=== PATIENT | male | born 1965 | race Two or more races ===

== ENCOUNTER 2021-11-16 07:57 | Day surgery (SDC) | payer MEDICAID ==
[2021-11-13 11:59] LABS: Basophils # (auto) 0 10 ^3/uL (0-0.2); Monocytes % (auto) 6.1 % (0.0-12.0); White Blood Cell 7.4 10^3/uL (4.4-10.8)
[2021-11-13 12:01] LABS: Basophils % (auto) 0.7 % (0.0-2.0); Eosinophils # (auto) 0.5 10 ^3/uL (0-0.8); Eosinophils % (auto) 6.1 % (0.0-7.0); Hematocrit 41.3 % (41.0-53.0); Hemoglobin 13.2 g/dL (13.5-17.5); Lymphocytes # (auto) 1.6 10 ^3/uL (0.4-5.4); Mean Corpuscular Hemoglobin 26.2 pg (28.0-32.0); Mean Corpuscular Volume 82.1 fL (80.0-100.0); Monocytes # (auto) 0.5 10 ^3/uL (0-1.3); Neutrophils # (auto) 4.8 10 ^3/uL (1.6-8.6); Neutrophils % (auto) 65.1 % (37.0-80.0); Red Blood Cells 5.03 10^6/uL (4.5-5.90); Red Cell Distribution Width 14.6 % (11.8-14.3)
[2021-11-13 12:19] LABS: Potassium 4.3 mmol/L (3.5-5.1)
[2021-11-13 12:21] LABS: Urine Bacteria NONE SEEN /hpf (None Seen); Urine Blood Negative /uL (Negative); Urine Specific Gravity 1.013 (1.001-1.035); Urine WBC <1 /hpf (0 - 3)
[2021-11-13 12:27] LABS: Albumin 3.7 g/dL (3.4-5.0); BUN/Creatinine Ratio 11.7; Bilirubin, Total 0.4 mg/dL (0.2-1.0); Calcium 8.9 mg/dL (8.5-10.1); Total Protein 7.5 g/dL (6.4-8.2)
[2021-11-13 12:29] LABS: INR 0.97 (0.9-1.15); Partial Thromboplastin Time 25.6 sec (24.6-33.4)
[~2021-11-16] VITALS: Ht 190.5 cm; Wt 140.6 kg
[~2021-11-16 07:57] MED LIST: GABA400C PO; HYDR-4072 PO; LISI40TA11 PO; OME20GT PO
[2021-11-16] MEDS ORDERED: PHENYLEPHRINE HCL 10 MG/ML VL IV ONE (07:58)
[2021-11-16] MEDS ORDERED: ceFAZolin 1GM/50ML 100 ML IV ONE (10:06)
[2021-11-16] MEDS ORDERED: SUCCINYLCHOLINE CHLORIDE 20 MG/ML 10ML VIAL IV ONE (10:15)
[2021-11-16] MEDS ORDERED: fentaNYL CITRATE 100 MCG/2 ML VL ONE (10:23)
[2021-11-16] MEDS ORDERED: MIDAZOLAM HCL 2MG/2ML 2ml VIAL (1mg/ml) ONE (10:23)
[2021-11-16] MEDS ORDERED: MEPERIDINE HCL (50 MG/ML) 1 ML VIAL ONE (10:23)
[2021-11-16] MEDS ORDERED: LIDOCAINE 2% JELLY 11ml (GLYDO) ONE (10:30)
[2021-11-16] MEDS ORDERED: HYDROmorphone HCL 2 MG/ML VL/or syr IV PRN (11:00)
[2021-11-16] MEDS ORDERED: ePHEDrine SULFATE 50 MG/ML AMP IV PRN (11:00)
[2021-11-16] MEDS ORDERED: LABETALOL HCL 5 MG/ML 4ML SYRINGE IV PRN (11:00)
[2021-11-16] MEDS ORDERED: METOCLOPRAMIDE HCL 5MG/ml INJ 2ml VIAL IV PRN (11:00)
[2021-11-16] MEDS ORDERED: ONDANSETRON HCL 4 MG/2 ML VIAL IV PRN (11:00)
[2021-11-16] MEDS ORDERED: MORPHINE SULFATE 4 MG/ML SYR/VIAL IV PRN (11:00)
[2021-11-16] MEDS ORDERED: MIDAZOLAM HCL 2MG/2ML 2ml VIAL (1mg/ml) IV PRN (11:00)
[2021-11-16] MEDS ORDERED: DexAMETHasone SOD PHOS 10MG/1ML VIAL INJ ONE (11:26)
[2021-11-16] MEDS ORDERED: ONDANSETRON HCL 4 MG/2 ML VIAL ONE (11:26)
[2021-11-16] MEDS ORDERED: ETOMIDATE (2MG/ML) 20ML VIAL IV ONE (11:26)
[2021-11-16 13:04] VITALS: BP 148/86
== END 2021-11-16 13:19 | disposition home or self-care (01) ==
LOC: SUR 07:57
PROVIDERS: ATTEND Urology
DX: N20.0 Calculus of kidney (principal); C68.9 Malignant neoplasm of urinary organ, unspecified; I10 Essential (primary) hypertension; G89.29 Other chronic pain; M54.9 Dorsalgia, unspecified; E66.01 Morbid (severe) obesity due to excess calories; Z98.890 Other specified postprocedural states; Z79.899 Other long term (current) drug therapy; Z68.41 Body mass index [BMI] 40.0-44.9, adult; Z20.822 Contact with and (suspected) exposure to COVID-19
CPT/HCPCS: 36415; 50590; 80053; 81001; 85025; 85610; 85730; 88305; J0330; J0690; J1100; J2175; J2250; J2370; J2405; J3010; U0003